=== PATIENT | female | born 1970 | race Caucasian/White ===

== ENCOUNTER 2021-10-30 19:55 | Inpatient (IN) | payer SELFPAY ==
[2021-10-30 20:00] VITALS: BMI 25.4
[2021-10-30] MEDS: acetaminophen 325 mg Tablet 650 MG PO (20:20)
[2021-10-30] MEDS: LORazepam 2 mg Tablet PO (20:20)
[2021-10-30] MEDS: ondansetron 4 MG Tablet PO (20:20)
[2021-10-30 20:58] VITALS: BP 134/86; PULSE 91; RESP 18; O2SAT 94
[2021-10-31 05:51] VITALS: BP 138/82; PULSE 91; RESP 15; O2SAT 96
[2021-10-31] MEDS: multivitamin therapeutic Tablet 1 TAB PO (08:33)
[2021-10-31] MEDS: folic acid 1 mg Tablet PO (08:33)
[2021-10-31] MEDS: thiamine 100 mg Tablet PO (08:33)
[2021-10-31] MEDS: ondansetron 4 MG Tablet PO ×2 (08:33→16:00)
[2021-10-31] MEDS: LORazepam 2 mg Tablet PO ×2 (08:33→12:56)
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
[2021-10-31] MEDS: acetaminophen 325 mg Tablet 650 MG PO (13:03)
[2021-10-31 14:00] VITALS: BP 170/90; PULSE 80; RESP 15; TEMP 37; O2SAT 95
[2021-10-31] MEDS: duloxetine 30 mg Capsule PO (14:55)
[2021-10-31] MEDS: quetiapine 100 mg Tablet PO (21:08)
[2021-10-31 21:13] VITALS: BP 171/91; PULSE 77; RESP 20; TEMP 36.8; O2SAT 96
[2021-10-31] MEDS: ibuprofen 600 mg Tablet PO (23:06)
[2021-10-31] MEDS: promethazine 25 mg Tablet PO (23:07)
[2021-11-01 06:00] VITALS: PULSE 99; RESP 20; TEMP 36.6; O2SAT 95
[2021-11-01] MEDS: multivitamin therapeutic Tablet 1 TAB PO (08:57)
[2021-11-01] MEDS: duloxetine 30 mg Capsule PO (08:57)
[2021-11-01] MEDS: folic acid 1 mg Tablet PO (08:57)
[2021-11-01] MEDS: thiamine 100 mg Tablet PO (08:57)
[2021-11-01] MEDS: LORazepam 2 mg Tablet PO ×2 (09:00→21:54)
[2021-11-01] MEDS: ondansetron 4 MG Tablet PO (09:00)
--- NOTE | 2021-11-01 09:01 | PC.NURSE ---
CIWA SCORE 13, PRN ZOFRAN ATIVAN 2 MG GIVEN PO PER CIWA SCORE 13...PT TREMULOUS, C/O HEADACHE, REQUESTING ATIVAN BY NAME
[2021-11-01 14:00] VITALS: BP 166/90; PULSE 83; RESP 15; TEMP 36.6; O2SAT 98
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
[2021-11-01] MEDS: prazosin 1 mg Capsule 2 MG PO (20:46)
[2021-11-01 21:32] VITALS: BP 190/101; PULSE 77; RESP 189; TEMP 36.8; O2SAT 96
[2021-11-01] MEDS: acetaminophen 325 mg Tablet 650 MG PO (21:54)
--- NOTE | 2021-11-01 21:57 | PC.NURSE ---
pt scoring 15 on CIWA scale, Ativan 2mg po given.
[2021-11-02 06:00] VITALS: BP 168/91; PULSE 82; RESP 18; TEMP 36.9; O2SAT 95
[2021-11-02] MEDS: folic acid 1 mg Tablet PO (08:27)
[2021-11-02] MEDS: thiamine 100 mg Tablet PO (08:27)
[2021-11-02] MEDS: duloxetine 30 mg Capsule PO (08:27)
[2021-11-02] MEDS: acetaminophen 325 mg Tablet 650 MG PO ×2 (08:27→17:53)
[2021-11-02] MEDS: ondansetron 4 MG Tablet PO (08:27)
[2021-11-02] MEDS: multivitamin therapeutic Tablet 1 TAB PO (08:27)
--- NOTE | 2021-11-02 08:28 | PC.NURSE ---
PRN ZOFRAN 4 MG GIVEN PO PER PT C/O STATED NAUSEA
[2021-11-02] MEDS: hyDROXYzine 25 mg Capsule 50 MG PO ×2 (13:44→20:13)
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
[2021-11-02 14:00] VITALS: BP 157/78; PULSE 84; RESP 20; TEMP 36.6; O2SAT 97
[2021-11-02 19:48] VITALS: BP 176/91; PULSE 92; RESP 17; TEMP 36.9; O2SAT 93
[2021-11-02] MEDS: prazosin 1 mg Capsule 2 MG PO (19:58)
[2021-11-02] MEDS: trazodone 100 mg Tablet PO (20:13)
[2021-11-02] MEDS: ibuprofen 600 mg Tablet PO (20:13)
[2021-11-02] MEDS: lidocaine 5% Patch 1 PATCH TOPICAL (21:07)
[2021-11-03 06:00] VITALS: BP 154/80; PULSE 75; RESP 18; TEMP 37; O2SAT 93
[2021-11-03] MEDS: hyDROXYzine 25 mg Capsule 50 MG PO (07:43)
[2021-11-03] MEDS: ibuprofen 600 mg Tablet PO ×2 (07:43→15:18)
--- NOTE | 2021-11-03 07:47 | PC.NURSE ---
Patient with c/o left hip pain radiating down left lateral thigh rated 10. Motrin 600 mg po given for this. Patien also verbalized increased anxiety. Affect anxious and tearful. Hydroxyzine 50 mg po given for this.
[2021-11-03] MEDS: multivitamin therapeutic Tablet 1 TAB PO (09:35)
[2021-11-03] MEDS: folic acid 1 mg Tablet PO (09:35)
[2021-11-03] MEDS: thiamine 100 mg Tablet PO (09:35)
[2021-11-03] MEDS: duloxetine 30 mg Capsule 60 MG PO (10:54)
[2021-11-03] MEDS: nicotine 2 mg Gum BUCCAL (10:54)
[2021-11-03] MEDS: LORazepam 2 mg Tablet PO (12:13)
[2021-11-03 14:00] VITALS: BP 180/128
[2021-11-03] MEDS: cloNIDine 0.1 mg Tablet 0.2 MG PO (15:17)
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
[2021-11-03] MEDS: propranolol 20 mg Tablet 10 MG PO (19:41)
[2021-11-03] MEDS: trazodone 100 mg Tablet PO (19:41)
[2021-11-03] MEDS: prazosin 1 mg Capsule 2 MG PO (19:42)
[2021-11-03] MEDS: lidocaine 5% Patch 1 PATCH TOPICAL (20:24)
[2021-11-03 20:32] VITALS: BP 110/67; PULSE 66; RESP 16; TEMP 36.9; O2SAT 97
[2021-11-04] MEDS: ibuprofen 600 mg Tablet PO (05:04)
[2021-11-04 06:00] VITALS: BP 146/80; PULSE 66; RESP 16; TEMP 36.8; O2SAT 95
[2021-11-04] MEDS: thiamine 100 mg Tablet PO (09:39)
[2021-11-04] MEDS: OLANZapine 5 mg ODT PO (09:39)
[2021-11-04] MEDS: duloxetine 30 mg Capsule 60 MG PO (09:39)
[2021-11-04] MEDS: propranolol 20 mg Tablet 10 MG PO (09:39)
[2021-11-04] MEDS: multivitamin therapeutic Tablet 1 TAB PO (09:39)
[2021-11-04] MEDS: folic acid 1 mg Tablet PO (09:40)
[2021-11-04] MEDS: lidocaine 5% Patch 1 PATCH TOPICAL (09:40)
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
[2021-11-04 11:51] VITALS: BP 146/80; PULSE 66; RESP 16; TEMP 36.8; O2SAT 95
== END 2021-11-04 12:32 | disposition home or self-care (01) | DRG 885 ==
PROVIDERS: Admitting Provider Psychiatry & Neurology Psychiatry; Visit Provider Psychiatry & Neurology Psychiatry
DX: F33.2 Major depressive disorder, recurrent severe without psychotic features (principal); R45.851 Suicidal ideations; F10.10 Alcohol abuse, uncomplicated; F43.10 Post-traumatic stress disorder, unspecified; F17.200 Nicotine dependence, unspecified, uncomplicated
CPT/HCPCS: 97165; Q0162; Q0169